=== PATIENT | female | born 1990 | race Caucasian/White ===

== ENCOUNTER 2017-04-13 21:09 | Emergency (ER) | payer MEDICAID ==
[~2017-04-13] VITALS: Ht 160 cm; Wt 99.8 kg
--- NOTE | 2017-04-13 21:09 | NUR ---
ER at bedside examining patient in triage.
[2017-04-13 21:10] VITALS: BP_SYST 119
[2017-04-13] MEDS ORDERED: methylPREDNISolone SOD SUCC/PF 62.5 MG/ML VIAL IVP ONE (21:45)
[2017-04-13] MEDS ORDERED: ALBUTEROL SULFATE 0.083% 2.5 MG/3 ML VIAL.NEB IH ONE (21:45)
[2017-04-13] MEDS ORDERED: IPRATROPIUM BROM 0.5 MG/2.5 ML VIAL.NEB (ATROVENT) IH ONE (21:45)
--- NOTE | 2017-04-13 21:45 | NUR ---
Patient to ER bed 4 to gown for evaluation. Side rails up. Report given to SULEMA ABEBE.
[2017-04-13 21:49] LABS: BASOPHILS # (AUTO) 0.2 K/uL (0.0-0.2); EOSINOPHILS # (AUTO) 0.1 K/uL (0.0-0.4); MEAN CORPUSCULAR HGB CONC 33 % (32-36); MEAN CORPUSCULAR VOLUME 90 fL (79.0-98.0); MONOCYTES # (AUTO) 0.6 K/uL (0.0-1.0)
[2017-04-13 21:53] LABS: BASOPHILS % (AUTO) 2.8 % (0.0-2.0); EOSINOPHILS % (AUTO) 2.5 % (0.0-4.0); HEMATOCRIT 41.8 % (36-48); LYMPHOCYTES # (AUTO) 0.9 K/uL (1.0-5.5); LYMPHOCYTES % (AUTO) 14.8 % (20.5-51.5); MEAN CORPUSCULAR HEMOGLOBIN 30 pg (27-31); MONOCYTES % (AUTO) 9.6 % (1.7-9.3); NEUTROPHILS # (AUTO) 4.1 K/uL (1.8-7.7); NEUTROPHILS % (AUTO) 70.3 % (40.0-70.0); PLATELET COUNT (AUTO) 281 K/uL (130-430); RED BLOOD CELL COUNT(AUTO) 4.66 MIL/uL (4.2-6.2); RED CELL DISTRIBUTION WIDTH 13.1 % (9.0-15.0); WHITE BLOOD COUNT (AUTO) 5.9 K/uL (4.8-10.8)
--- NOTE | 2017-04-13 21:56 | NUR ---
Patient to ER C/O cold like symptoms since Wednesday, unproductive cough, chest tightness and pain with inspiration. AAOx4, unlabored breathing, clear lungs throughout, no signs of acute distress.
[2017-04-13 22:03] LABS: CREATININE 0.88 mg/dL (0.55-1.30); POTASSIUM 3.5 mmol/L (3.5-5.1)
[2017-04-13 22:08] LABS: ALBUMIN 4.1 g/dL (3.4-4.8); TOTAL BILIRUBIN 0.7 mg/dL (0.0-1.0); TOTAL PROTEIN, SERUM 8.6 g/dL (6.4-8.3)
--- NOTE | 2017-04-13 22:40 | NUR ---
# 20 gauge angiocath placed to left ac. Use of asceptic technique. Opsite placed over site. Blood return noted. Flushed with 10 cc of normal saline. No evidence of infiltration noted. Patient tolerated well.
[2017-04-13 22:51] LABS: BILIRUBIN,URINE 1+ (NEGATIVE); BLOOD, URINE NEGATIVE (NEGATIVE); CLARITY/URINE HAZY (CLEAR); COLOR,URINE YELLOW (YELLOW); GLUCOSE,URINE NEGATIVE (NEGATIVE); KETONES,URINE NEGATIVE (NEGATIVE); LEUKOCYTE ESTERASE ,URINE TRACE (NEGATIVE); NITRITE, URINE NEGATIVE (NEGATIVE); PH,URINE 5.5 (5.0-8.0); PROTEIN URINE TRACE (NEGATIVE); UROBILINOGEN,URINE 0.2 (0.2-1.0)
[2017-04-13 23:05] LABS: BACTERIA,URINE MODERATE /HPF (None Seen); RBC,URINE 0-3 /HPF (0-3); WBC,URINE 0-3 /HPF (0-3)
[2017-04-13 23:06] LABS: MUCUS,URINE 1+ /LPF (None Seen)
[2017-04-13 23:08] LABS: BARBITURATE, URINE NEGATIVE (NEG <=200); BENZODIAZEPINE, URINE NEGATIVE (NEG <=150); CANNABINOID, URINE POSITIVE (NEG <=50); COCAINE, URINE NEGATIVE (NEG <=150); METHAMPHETAMINES SCREEN,URINE NEGATIVE (NEG <=500); OPIATE, URINE NEGATIVE (NEG <=100); PHENCYCLIDINE SCREEN,URINE NEGATIVE (NEG <=25); UR TRICYCLIC ANTIDEPRESSANTS NEGATIVE (NEG <=300); URINE AMPHETAMINE NEGATIVE (NEG <=500); URINE METHADONE NEGATIVE (NEG <=200); URINE OXYCODONE SCREEN NEGATIVE (NEG <=100); URINE PROPOXYPHENE SCREEN NEGATIVE (NEG <=300)
[2017-04-13] MEDS ORDERED: ONDANSETRON HCL 4 MG/2 ML VIAL IVP ONE (23:15)
[2017-04-13] MEDS ORDERED: HYDROmorphone 1 MG INJ. 1 MG/ML AMPUL IVP ONE (23:15)
--- NOTE | 2017-04-13 23:36 | NUR ---
Patient calm on gurney, no signs of acute distress. Friend at bedside.
--- NOTE | 2017-04-14 00:19 | NUR ---
RT at bedside for 2nd breathing treatment.
[2017-04-14] MEDS ORDERED: IPRATROPIUM BROM 0.5 MG/2.5 ML VIAL.NEB (ATROVENT) IH ONE (00:45)
[2017-04-14] MEDS ORDERED: ALBUTEROL SULFATE 0.083% 2.5 MG/3 ML VIAL.NEB IH ONE (00:45)
[2017-04-14 00:49] VITALS: BP_SYST 125
--- NOTE | 2017-04-14 00:49 | NUR ---
Patient given written and verbal discharge instructions and verbalizes understanding. ER MD VANEGAS discussed with patient the results and treatment provided. Patient in stable condition. ID arm band removed. IV catheter removed intact and dressing applied, no active bleeding. Rx of naprosyn, azithromac, albuterol given. Patient educated on pain management and to follow up with PMD. Pain Scale 0/10. Opportunity for questions provided and answered.
== END 2017-04-14 00:49 | disposition home or self-care (01) ==
LOC: SED 21:09
DX: J20.9 Acute bronchitis, unspecified (principal); G44.209 Tension-type headache, unspecified, not intractable; R74.0 Nonspecific elevation of levels of transaminase and lactic acid dehydrogenase [LDH]
CPT/HCPCS: 36415; 71010; 80053; 80307; 81000; 81025; 83880; 84484; 85025; 87086; 93005; 94640 ×2; 96374; 96375; 99285; J1170; J2405; J2930

== ENCOUNTER 2019-01-12 00:38 | Emergency (ER) | payer MEDICAID ==
[~2019-01-12] VITALS: Ht 160 cm; Wt 90.7 kg
[2019-01-12 00:42] VITALS: BP_SYST 129
[2019-01-12] MEDS ORDERED: LIDOCAINE 1% 10 MG/ML, 20 ML MDV INJ ONE (01:15)
[2019-01-12 01:22] VITALS: BP_SYST 129
== END 2019-01-12 01:22 | disposition home or self-care (01) ==
LOC: SED 00:38
DX: N76.4 Abscess of vulva (principal); L72.3 Sebaceous cyst; Z90.49 Acquired absence of other specified parts of digestive tract
CPT/HCPCS: 56405; 99284; J2001

== ENCOUNTER 2019-04-02 03:38 | Emergency (ER) | payer MEDICAID ==
[~2019-04-02] VITALS: Ht 160 cm; Wt 95.3 kg
[2019-04-02 03:49] VITALS: BP_SYST 130
--- NOTE | 2019-04-02 03:49 | NUR ---
Pt c/o non-productive cough with SOB and pounding H/A x 2 days. Respirations even and non-labored, BBS clear, SPO2 98% RA. NAD. Family member at bedside.
--- NOTE | 2019-04-02 03:49 | NUR ---
Placed in room 8. Placed on potline monitor, blood pressure machine and pulse oximeter. To gown for exam. Side rails up. Report given to Ethan.
--- NOTE | 2019-04-02 03:55 | NUR ---
Dr. Salvador at bedside.
--- NOTE | 2019-04-02 04:28 | NUR ---
Pt to X-ray via W/C.
[2019-04-02] MEDS ORDERED: IBUPROFEN 800 MG TABLET PO ONE (04:30)
[2019-04-02] MEDS ORDERED: IPRATROPIUM/ALBUTEROL SULFATE 3 ML AMPUL.NEB (DUONEB) INH ONE (04:30)
--- NOTE | 2019-04-02 04:32 | NUR ---
Pt returns from X-ray.
--- NOTE | 2019-04-02 04:36 | NUR ---
RT at bedside, Sonia in progress.
--- NOTE | 2019-04-02 05:00 | NUR ---
Pt verbalizes improvement in breathing, respirations even and non-labored, BBS clear. SPO2 98% RA.
[2019-04-02 05:28] VITALS: BP_SYST 146
--- NOTE | 2019-04-02 05:28 | NUR ---
Patient given written and verbal discharge instructions and verbalizes understanding. ER MD discussed with patient the results and treatment provided. Patient in stable condition. ID arm band removed. Rx of Albuterol and Tessalon Perles given. Patient educated on pain management and to follow up with PMD. Pain Scale 5/10, medicated with Motrin prior to D/C. Opportunity for questions provided and answered. Medication side effect fact sheet provided.
== END 2019-04-02 05:28 | disposition home or self-care (01) ==
LOC: SED 03:38
DX: J20.9 Acute bronchitis, unspecified (principal)
CPT/HCPCS: 71046; 81025; 94640; 99283; J7620; 93005

== ENCOUNTER 2019-04-08 01:30 | Emergency (ER) | payer MEDICAID ==
[~2019-04-08] VITALS: Ht 160 cm; Wt 95.3 kg
[2019-04-08 01:40] VITALS: BP_SYST 147
--- NOTE | 2019-04-08 01:40 | NUR ---
Patient to ER bed 5 for evaluation. Side rails up. Report given to
--- NOTE | 2019-04-08 02:19 | NUR ---
ER at bedside examining patient.
--- NOTE | 2019-04-08 02:20 | NUR ---
Pt BIB family to ED C/O persistent cough, and mild rash all over body after switching fabrilc softener to Downy. Pt was seen here at the ED for Bronchitis about a week ago. Pt states she has been a smoker for a while. No other injuries and or complaints noted. VSS no s/s of acute distress. Resting on gurney with rails up
--- NOTE | 2019-04-08 02:24 | NUR ---
ER Dr. Elizabeth at bedside examining patient.
[2019-04-08] MEDS ORDERED: methylPREDNISolone SOD SUCC/PF 62.5 MG/ML VIAL IM ONE (02:30)
[2019-04-08] MEDS ORDERED: IPRATROPIUM/ALBUTEROL SULFATE 3 ML AMPUL.NEB (DUONEB) INH ONE (02:30)
--- NOTE | 2019-04-08 02:31 | NUR ---
RT bedside for breathing Tx adm, well tolerated
--- NOTE | 2019-04-08 03:30 | NUR ---
Pt states feeling better, still coughing however; Dr. Elizabeth aware
[2019-04-08 03:50] VITALS: BP_SYST 137
--- NOTE | 2019-04-08 03:50 | NUR ---
Patient given written and verbal discharge instructions and verbalizes understanding. ER MD discussed with patient the results and treatment provided. Patient in stable condition. ID arm band removed. Rx of Prednisone and Zithromax given. Patient educated on pain management and to follow up with PMD. Pain Scale 0/10. Opportunity for questions provided and answered. Medication side effect fact sheet provided.
== END 2019-04-08 03:50 | disposition home or self-care (01) ==
LOC: SED 01:30
DX: J20.9 Acute bronchitis, unspecified (principal); L50.9 Urticaria, unspecified
CPT/HCPCS: 96372; 99283; J2930; J7620

== ENCOUNTER 2019-04-09 02:08 | Emergency (ER) | payer MEDICAID ==
[~2019-04-09] VITALS: Ht 160 cm; Wt 95.3 kg
[2019-04-09 02:16] VITALS: BP_SYST 144
--- NOTE | 2019-04-09 02:20 | NUR ---
Patient triaged and placed in waiting room. VSS and patient appears in no acute distress at this time. Accompanied by family, awaiting available bed, and MD notified of need for MSE.
--- NOTE | 2019-04-09 02:21 | NUR ---
Patient reports that she filled, but has not taken the medication yet.
--- NOTE | 2019-04-09 02:26 | NUR ---
Patient to ER bed 8 to gown for evaluation. Side rails up.
--- NOTE | 2019-04-09 02:29 | NUR ---
Patient to ER via triage for evaluation of rash and itching to both hands, patient reports that she was seen in ER last night for similar symptoms, was given RX and has had it filled, but has not taken any of the medication yet. Patient is requesting an anti-itch cream. Patient is awake, alert and oriented in no acute distress, vital signs stable, respirations even and unlabored, skin warm and dry to touch. Patient able to ambulate without difficulty to bed 8. Patient awaiting evaluation by ER MD, will continue to observe and assess.
--- NOTE | 2019-04-09 02:55 | NUR ---
Patient does not wish to proceed with medical care recommended by Dr. Elizabeth. Patient given information related to possible complications, up to and including , which could occur as a result of leaving hospital at this time. Patient verbalizes understanding of risks involved leaving against medical advice. Patient has signed AMA form.
== END 2019-04-09 02:55 | disposition left against medical advice (07) ==
LOC: SED 02:08
DX: R21 Rash and other nonspecific skin eruption (principal); L29.9 Pruritus, unspecified; Z53.21 Procedure and treatment not carried out due to patient leaving prior to being seen by health care provider
CPT/HCPCS: 99281

== ENCOUNTER 2019-07-13 00:01 | Emergency (ER) | payer MEDICAID ==
[~2019-07-13] VITALS: Ht 160 cm; Wt 86.2 kg
[2019-07-13 00:06] VITALS: BP_SYST 141
--- NOTE | 2019-07-13 00:09 | NUR ---
Patient to ER bed 8 to gown for evaluation. Side rails up. Report given to Charlie LEONE.
--- NOTE | 2019-07-13 00:10 | NUR ---
Pt C/O Abcess to RT inner thigh x 3 days. Pt states the area is swollen and painful. Reports being seen for abcess in the past and was drained and discharged. Denies any fever, N/V, or any other symptoms at this time will continue to monitor.
--- NOTE | 2019-07-13 00:34 | NUR ---
Dr. Salvador at bedside examining abcess with Corazon LEONE present during entire examination. Patient tolerated procedure well. Patient assisted to position of comfort after examination.
[2019-07-13] MEDS ORDERED: LIDOCAINE/EPI 1% 1:100000 20 ML VIAL INJ ONE (00:45)
--- NOTE | 2019-07-13 01:12 | NUR ---
prior to lancing wound. Dr. Salvador asked patient if she needed anything. patient declined pain medication and stated she just wanted something to numb the area. Dr. Salvador at bedside to for abscess lancing. patient has a 3x3 circular abscess proximal to the left femoral artery distal to the labia major. skin around abscess is macerated skin throughout the perineal area. Dr. Salvador gave 15ml of Lidocaine 1% and Epi. patient tolerated well. approx 10-15 ml of purulent drainage upon lancing abcess outputted. patient had approx 4cm tunneling at 2:00-5:00. Dr. Salvador packed wound with approx 13 cm of 1/4" cuard packing strips. patient was instructed to wait to apply a dry dressing, however, patient stated "I just want to go see my boyfriend already."
--- NOTE | 2019-07-13 01:23 | NUR ---
Patient given written and verbal discharge instructions and verbalizes understanding. ER MD discussed with patient the results and treatment provided. Patient in stable condition. ID arm band removed. Rx of Keflex, Motrin and Bactrim given. Patient educated on pain management and to follow up with PMD. Pain Scale 0. Opportunity for questions provided and answered. Medication side effect fact sheet provided.
[2019-07-13 01:27] VITALS: BP_SYST 141
== END 2019-07-13 01:23 | disposition home or self-care (01) ==
LOC: SED 00:01
DX: L03.115 Cellulitis of right lower limb (principal); L02.415 Cutaneous abscess of right lower limb
CPT/HCPCS: 99283

== ENCOUNTER 2019-07-17 00:08 | Emergency (ER) | payer MEDICAID ==
[~2019-07-17] VITALS: Ht 160 cm; Wt 86.6 kg
[2019-07-17 00:44] VITALS: BP_SYST 152
--- NOTE | 2019-07-17 00:48 | NUR ---
Pt placed to ER bed 06, to arslan, report given to SULEMA Chandra.
== END 2019-07-17 01:12 | disposition left against medical advice (07) ==
LOC: SED 00:08
DX: Z48.01 Encounter for change or removal of surgical wound dressing (principal); Z53.21 Procedure and treatment not carried out due to patient leaving prior to being seen by health care provider

== ENCOUNTER 2019-07-18 22:30 | Emergency (ER) | payer MEDICAID ==
[~2019-07-18] VITALS: Ht 157.5 cm; Wt 90.7 kg
[2019-07-18 22:37] VITALS: BP_SYST 132
--- NOTE | 2019-07-18 22:41 | NUR ---
Patient triaged and placed in waiting room. VSS and patient appears in no acute distress at this time. Accompanied by visitor, awaiting available bed, and MD notified of need for MSE.
--- NOTE | 2019-07-19 00:29 | NUR ---
Pt ambulatory to bed 8 for evaluation
--- NOTE | 2019-07-19 00:45 | NUR ---
Pt is a 28 y/o female who was BIB boyfriend who presents to the ED for a wound check. Pt states she has an abscess to her right gluteal region that was incised and was subsequently drained 3 days ago. Pt was given prescription of keflex and bactrim. Pt denies any fever, chills, or any other complaints today. No signs of acute distress or discomfort noted. Will cont to monitor pt.
--- NOTE | 2019-07-19 01:18 | NUR ---
ER at bedside examining patient.
[2019-07-19] MEDS ORDERED: MORPHINE 2 MG/ML INJ. SYRINGE IM ONE (01:45)
[2019-07-19 02:51] VITALS: BP_SYST 132
--- NOTE | 2019-07-19 02:51 | NUR ---
Patient given written and verbal discharge instructions and verbalizes understanding. ER MD Dr. Elizabeth discussed with patient the results and treatment provided. Patient in stable condition. ID arm band removed. Rx of norco given. Patient educated on pain management and to follow up with PMD. Pain Scale 1/10 able to steadily ambulate out of ER. Opportunity for questions provided and answered. Medication side effect fact sheet provided.
== END 2019-07-19 02:51 | disposition home or self-care (01) ==
LOC: SED 22:30
DX: L02.31 Cutaneous abscess of buttock (principal); R03.0 Elevated blood-pressure reading, without diagnosis of hypertension
CPT/HCPCS: 96372; 99283; J2270

== ENCOUNTER 2020-05-13 23:53 | Emergency (ER) | payer MEDICAID ==
[~2020-05-13] VITALS: Ht 160 cm; Wt 82.1 kg
[2020-05-14] VITALS: BP_SYST 141
--- NOTE | 2020-05-14 | NUR ---
Patient triaged and placed in waiting room. VSS and patient appears in no acute distress at this time. Accompanied by BOYFRIEND, awaiting available bed, and MD notified of need for MSE.
--- NOTE | 2020-05-14 00:25 | NUR ---
CALLED PT NAME IN THE WR.NO ANSWER.
--- NOTE | 2020-05-14 00:30 | NUR ---
CALLED PT NAME IN THE WR.NO ANSWER.
--- NOTE | 2020-05-14 00:35 | NUR ---
CALLED PT NAME IN THE WR.NO ANSWER.
== END 2020-05-14 00:35 | disposition left against medical advice (07) ==
LOC: SED 23:53
DX: S69.92XA Unspecified injury of left wrist, hand and finger(s), initial encounter (principal); W23.0XXA Caught, crushed, jammed, or pinched between moving objects, initial encounter; Y93.89 Activity, other specified; Y92.89 Other specified places as the place of occurrence of the external cause; Y99.8 Other external cause status; Z53.21 Procedure and treatment not carried out due to patient leaving prior to being seen by health care provider

== ENCOUNTER 2020-07-28 13:11 | Emergency (ER) | payer MEDICAID ==
[~2020-07-28] VITALS: Ht 160 cm; Wt 87.1 kg
[2020-07-28 13:11] VITALS: BP_SYST 167
--- NOTE | 2020-07-28 13:11 | NUR ---
BROUGHT BACK TO BED # 7 AND TRIAGED. REPORT GIVEN TO ALLI
--- NOTE | 2020-07-28 13:20 | NUR ---
ER Dr. Mccullough at bedside examining patient. Culture collected.
--- NOTE | 2020-07-28 13:23 | NUR ---
Patient arrived in the ED c/o right ear pain and swelling for the last week. Denied any chest pain or shortness of breath. Denied any fevers, chills, nausea or vomiting. Patient is alert and oriented x4, respirations even and unlabored, speaking in full sentences, and ambulating with a steady gait. VSS, pain level 10/10 - Taking Aleve for it. Informed of the approximate wait time. Instructed to notify ED staff for any changes in condition or worsening of symptoms while waiting to be seen by an ED provider. Patient verbalized understanding.
--- NOTE | 2020-07-28 13:25 | NUR ---
Administered Rocephin IM as ordered by Dr. Mccullough. Patient tolerated the medications well. See eMAR for details.
[2020-07-28] MEDS ORDERED: cefTRIAXone 1 GM in LIDOCAINE 1%, 20 ML MDV 2.1 ML IM ONE (13:30)
--- NOTE | 2020-07-28 13:37 | NUR ---
Patient given written and verbal discharge instructions and verbalizes understanding. ER MD discussed with patient the results and treatment provided. Patient in stable condition. ID arm band removed. Rx of Cipro and Ciprodex given. Patient educated on pain management and to follow up with PMD. Pain Scale 10/10. Opportunity for questions provided and answered. Medication side effect fact sheet provided.
[2020-07-28 13:50] VITALS: BP_SYST 167
== END 2020-07-28 13:37 | disposition home or self-care (01) ==
LOC: SED 13:11
DX: H66.41 Suppurative otitis media, unspecified, right ear (principal); F17.200 Nicotine dependence, unspecified, uncomplicated; Z90.49 Acquired absence of other specified parts of digestive tract
CPT/HCPCS: 87070; 87186; 96372; 99283; J0696; J2001

== ENCOUNTER 2021-06-28 10:28 | Emergency (ER) | payer MEDICAID ==
[~2021-06-28] VITALS: Ht 160 cm; Wt 83.9 kg
[2021-06-28 10:33] VITALS: BP_SYST 154
--- NOTE | 2021-06-28 10:33 | NUR ---
Placed in room 6 . Placed on detective lieutenant, blood pressure machine and pulse oximeter. To gown for exam. Side rails up.
--- NOTE | 2021-06-28 10:35 | NUR ---
PT CAME TO ER C/O N/V SINCE WEDNESDAY WITH ISAACS. REPORTS STARTING UNKNOWN ABX ON WEDNESDAY FOR UTI FROM PRIMARY AND BEGAN THROWING UP THE FOLLOWING DAY. REPORTS BEING UNABLE TO HOLD ANYTHING DOWN SINCE THEN. WOKE UP THIS AM WITH ISAACS AND DIZZINESS. PT IS TACHY 138 AND HYPERTENSIVE 154/90. AAOX4, AMBULATORY, ACTIVELY HAVING EMESIS UPON ARRIVAL.
--- NOTE | 2021-06-28 10:45 | NUR ---
# 20 gauge angiocath placed to LAC. Use of asceptic technique. Opsite placed over site. Blood return noted. Blood for lab drawn from site. Flushed with 10 cc of normal saline. No evidence of infiltration noted. Patient tolerated well.
--- NOTE | 2021-06-28 10:50 | NUR ---
ER DR. BOND AT THE BEDSIDE EXAMINING PT
[2021-06-28] MEDS ORDERED: ONDANSETRON HCL 4 MG/2 ML VIAL IVP ONE (11:00)
[2021-06-28] MEDS ORDERED: NACL 0.9% 1,000 ML IV ONE ×2 (11:00→13:00)
--- NOTE | 2021-06-28 11:15 | NUR ---
PT C/O ISAACS WORSENING, REQUESTING PAIN MEDICATION MD MADE AWARE
[2021-06-28 11:17] LABS: BASOPHILS % (AUTO) 0.2 % (0.0-2.0); HEMATOCRIT 38.5 % (36-48); HEMOGLOBIN 13.3 g/dL (12.0-16.0); LYMPHOCYTES # (AUTO) 0.3 K/uL (1.0-5.5); LYMPHOCYTES % (AUTO) 3.1 % (20.5-51.5); MEAN CORPUSCULAR HEMOGLOBIN 33 pg (27-31); MEAN CORPUSCULAR HGB CONC 35 % (32-36); MEAN CORPUSCULAR VOLUME 96 fL (79.0-98.0); MONOCYTES # (AUTO) 0.5 K/uL (0.0-1.0); MONOCYTES % (AUTO) 6.4 % (1.7-9.3); NEUTROPHILS # (AUTO) 7.5 K/uL (1.8-7.7); NEUTROPHILS % (AUTO) 90.3 % (40.0-70.0); PLATELET COUNT (AUTO) 119 K/uL (130-430); RED BLOOD CELL COUNT(AUTO) 4.02 MIL/uL (4.2-6.2); RED CELL DISTRIBUTION WIDTH 12.2 % (9.0-15.0); WHITE BLOOD COUNT (AUTO) 8.4 K/uL (4.8-10.8)
[2021-06-28] MEDS ORDERED: IBUPROFEN 800 MG TABLET ONE (11:23)
[2021-06-28 11:30] LABS: ANION GAP 16 (5-15); CALCIUM 8.9 mg/dL (8.4-11.0); CHLORIDE 92 mmol/L (98-107); CREATININE 1.45 mg/dL (0.55-1.30); POTASSIUM 3.6 mmol/L (3.5-5.1); SODIUM SERUM 128 mmol/L (136-145); UREA NITROGEN, BLOOD 20 mg/dL (8-21)
[2021-06-28] MEDS ORDERED: IBUPROFEN 800 MG TABLET PO ONE (11:30)
[2021-06-28 11:34] LABS: ALANINE AMINOTRANSFERASE 50 U/L (12-78); ALBUMIN 2.9 g/dL (3.4-4.8); ASPARTATE AMINOTRANSFERASE 40 U/L (10-37); LIPASE 37 U/L (73-393); TOTAL BILIRUBIN 1.9 mg/dL (0.0-1.0)
[2021-06-28 11:45] LABS: C-REACTIVE PROTEIN QUANT 41.3 mg/dL (0-0.5)
[2021-06-28 11:52] LABS: GFR AFRICAN AMERICAN 54 mL/min (>90)
[2021-06-28 11:55] LABS: GLUCOSE 431 mg/dL (70-99)
[2021-06-28 11:59] LABS: BILIRUBIN,URINE 1+ (NEGATIVE); CLARITY/URINE SL CLOUDY (CLEAR); COLOR,URINE YELLOW (YELLOW); GLUCOSE,URINE 3+ (NEGATIVE); KETONES,URINE 1+ (NEGATIVE); LEUKOCYTE ESTERASE ,URINE TRACE (NEGATIVE); NITRITE, URINE NEGATIVE (NEGATIVE); PH,URINE 5.5 (5.0-8.0); PROTEIN URINE 2+ (NEGATIVE)
[2021-06-28 12:04] LABS: ACETONE, SERUM NEGATIVE (NEGATIVE)
[2021-06-28 12:25] LABS: BLOOD, URINE TRACE (NEGATIVE)
[2021-06-28 12:33] LABS: BACTERIA,URINE FEW /HPF (None Seen)
[2021-06-28 12:34] LABS: URINE AMORPHOUS URATE 2+ /HPF (None Seen)
--- NOTE | 2021-06-28 12:45 | NUR ---
PT C/O FEELING "ACID REFLUX", MADE AWARE
[2021-06-28] MEDS ORDERED: OMEP20CA15 PO (12:49)
[2021-06-28] MEDS ORDERED: GLU500 PO (12:49)
[2021-06-28] MEDS ORDERED: MAG HYDROX/AL HYDROX/SIMETH 30 ML, DICYCLOMINE HCL 20 MG, LIDOCAINE VISCOUS 2% 15ML (PO... PO ONE ×3 (13:00)
[2021-06-28] MEDS ORDERED: INSULIN REGULAR, HUMAN 10 UNITS/0.1 ML INJ IVP ONE (13:00)
--- NOTE | 2021-06-28 14:35 | NUR ---
PT C/O ISAACS WORSENING, REQUESTING PAIN MEDICATION MD MADE AWARE
[2021-06-28] MEDS ORDERED: ACETAMINOPHEN 325 MG TABLET ONE (14:41)
[2021-06-28] MEDS ORDERED: ACETAMINOPHEN 325 MG TABLET PO ONE (14:45)
[2021-06-28 15:33] VITALS: BP_SYST 115
--- NOTE | 2021-06-28 15:36 | NUR ---
Patient given written and verbal discharge instructions and verbalizes understanding. ER MD discussed with patient the results and treatment provided. Patient in stable condition. ID arm band removed. IV catheter removed intact and dressing applied, no active bleeding. Rx of METFORMIN AND OMEPRAZOLE given. Patient educated on pain management and to follow up with PMD. Pain Scale 0/10. Opportunity for questions provided and answered. Medication side effect fact sheet provided.
== END 2021-06-28 15:36 | disposition home or self-care (01) ==
LOC: SED 10:28
DX: K21.9 Gastro-esophageal reflux disease without esophagitis (principal); E11.9 Type 2 diabetes mellitus without complications; R11.10 Vomiting, unspecified
CPT/HCPCS: 36415; 80053; 81000; 81025; 82009; 82962; 83605; 83690; 84703; 85025; 86140; 87086; 96361; 96374; 96375; 99284; J1815; J2001; J2405; J7030